=== PATIENT | female | born 1950 | race Caucasian/White ===

== ENCOUNTER → 2022-08-10 | Outpatient (CLI) | payer MEDICARE ==
[~2022-08-10] MED LIST: CLIMARA1 EACH
== END | disposition home or self-care (01) ==
LOC: LAB SHORT 12:08 → LAB 12:08
DX: M25.432 Effusion, left wrist (principal)
CPT/HCPCS: 84550; 85379

== ENCOUNTER → 2022-08-15 | Outpatient (CLI) | payer MEDICARE | END | disposition home or self-care (01) | LOC: LAB 14:36 → LAB SHORT 14:36 | DX: R79.1 Abnormal coagulation profile (principal) | CPT/HCPCS: 85379 ==